=== PATIENT | female | born 1970 | race Caucasian/White ===

== ENCOUNTER 2021-03-22 08:19 | Day surgery (SDC) | payer OTHER, SELFPAY ==
[~2021-03-22] VITALS: Ht 152.4 cm; Wt 77.1 kg
[2021-03-22] MEDS ORDERED: diphenhydrAMINE 50 MG/ML VIAL ONE (13:01)
[2021-03-22] MEDS ORDERED: fentaNYL citrate 0.05 MG/ML VIAL ONE (13:02)
[2021-03-22] MEDS ORDERED: MIDAZOLAM 5 MG/5 ML VIAL ONE (13:02)
[2021-03-22] MEDS: fentaNYL citrate 0.05 MG/ML VIAL IVP ONE (13:08)
[2021-03-22] MEDS: MIDAZOLAM 2 MG/2 ML VIAL IVP ONE (13:09)
== END 2021-03-22 13:56 | disposition home or self-care (01) ==
LOC: MDS 08:19 → MMU 10:11 → MDS 13:56
PROVIDERS: ATTEND Internal Medicine Gastroenterology
DX: Z12.11 Encounter for screening for malignant neoplasm of colon (principal); K21.00 Gastro-esophageal reflux disease with esophagitis, without bleeding; I10 Essential (primary) hypertension; G47.33 Obstructive sleep apnea (adult) (pediatric); M19.90 Unspecified osteoarthritis, unspecified site; Z79.899 Other long term (current) drug therapy; Z20.822 Contact with and (suspected) exposure to COVID-19
CPT/HCPCS: 43239; 45378; 87426; 88305; 88312; 88313; 88342; J2250; J3010; J1200